=== PATIENT | male | born 1985 | race African-American/Black ===

== ENCOUNTER 2018-03-05 14:20 | Inpatient (IN) | payer OTHER ==
[2018-03-05 16:01] VITALS: BMI 25.4
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
[2018-03-05] MEDS ORDERED: guaiFENesin/D-METHORPHAN HB 10 ML UNIT-DOSE CUPS PO PRN (17:22)
[2018-03-05] MEDS ORDERED: MAGNESIUM HYDROX 2400MG/30ML ORAL SUSPENSION 30 ML CUP PO PRN (17:22)
[2018-03-05] MEDS ORDERED: IBUPROFEN 400 MG TABLET (FP) PO PRN (17:22)
[2018-03-05] MEDS ORDERED: MAG HYDROX/AL HYDROX/SIMETH 30 ML UNIT-DOSE CUP PO PRN (17:22)
[2018-03-05] MEDS ORDERED: P-EPHED 60MG/TRIPROLIDI 2.5MG TABLET PO PRN (17:22)
[2018-03-05] MEDS ORDERED: ACETAMINOPHEN 325 MG TABLET (FP) PO PRN (17:22)
[2018-03-05] MEDS ORDERED: MAGNESIUM CITRATE 300 ML BOTTLE PO PRN (17:22)
[2018-03-05] MEDS ORDERED: LOPERAMIDE HCL 2 MG CAPSULE PO PRN (17:22)
[2018-03-05] MEDS ORDERED: NICOTINE POLACRILEX 2 MG GUM BC PRN (17:22)
[2018-03-05] MEDS ORDERED: MENTHOL/PHENOL 1 EACH UD MM PRN (17:22)
[2018-03-05] MEDS ORDERED: TRIMETHOBENZAMIDE HCL 200MG/2ML INJ IM PRN (17:26)
[2018-03-05] MEDS: amLODIPine BESYLATE 10 MG TABLET (FP) PO SCH (20:13)
[2018-03-05] MEDS: diazePAM 5 MG TABLET PO PRN (20:13)
[2018-03-05] MEDS ORDERED: METHADONE HCL 10 MG TABLET (FOR DETOX USE ONLY) PO ONE ×2 (20:15→23:00)
[2018-03-05] MEDS: NICOTINE 21 MG/24 HOURS TOPICAL PATCH TD SCH (20:18)
[2018-03-05] MEDS: THIAMINE HCL 100 MG TABLET (FP) PO SCH (22:07)
[2018-03-05] MEDS: MELATONIN 5 MG TABLETS PO PRN (22:07)
[2018-03-05] MEDS: TOLNAFTATE 1% CREAM 15 GM TUBE TP SCH (22:08)
[2018-03-06] MEDS: diazePAM 5 MG TABLET PO PRN ×3 (04:02→22:08)
[2018-03-06] MEDS ORDERED: METHADONE HCL 10 MG TABLET (FOR DETOX USE ONLY) PO ONE (10:00)
[2018-03-06] MEDS: AMMONIUM LACTATE 12% LOTION 225 GM BOTTLE TP SCH (10:20)
[2018-03-06] MEDS: PRENATAL VITAMINS W/ FOLIC ACID TABLET (FP) PO SCH (10:24)
[2018-03-06] MEDS: NICOTINE 21 MG/24 HOURS TOPICAL PATCH TD SCH (10:24)
[2018-03-06] MEDS: amLODIPine BESYLATE 10 MG TABLET (FP) PO SCH (10:24)
[2018-03-06] MEDS: TOLNAFTATE 1% CREAM 15 GM TUBE TP SCH ×2 (10:25→22:10)
[2018-03-06 10:35] LABS: SICKLE CELL SCREEN NEGATIVE (NEGATIVE)
[2018-03-06 10:49] LABS: HEMATOCRIT 37.1 % (35.4-49); HEMOGLOBIN 12.5 GM/dL (11.7-16.9); MCH 29.7 pg (25.7-33.7); MCHC 33.8 g/dl (32.0-35.9); MEAN CELL VOLUME 87.7 fl (80-96); MEAN PLT VOLUME 8.2 fl (7.5-11.1); PLATELET COUNT 292 K/MM3 (134-434); RBC 4.22 M/mm3 (4.00-5.60); RDW 15.4 % (11.9-15.9); WHITE BLOOD COUNT 6.2 K/mm3 (4.0-10.0)
[2018-03-06 11:12] LABS: ALBUMIN 3.4 g/dl (3.4-5.0); ALK PHOS 74 U/L (45-117); ANION GAP 9 MMOL/L (8-16); BILIRUBIN,TOTAL 0.3 mg/dL (0.2-1); BLOOD UREA NITROGEN 10 mg/dL (7-18); CALCIUM 8.8 mg/dL (8.5-10.1); CHLORIDE 104 mmol/L (98-107); CO2 28 mmol/L (21-32); CREATININE 0.9 mg/dL (0.55-1.3); GLUCOSE,RANDOM 72 mg/dL (74-106); POTASSIUM 3.9 mmol/L (3.5-5.1); SGOT/AST 7 U/L (15-37); SGPT/ALT 14 U/L (13-61); SODIUM 142 mmol/L (136-145); TOT PROT 6.2 g/dl (6.4-8.2)
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
[2018-03-06] MEDS: SERTRALINE HCL 50 MG TABLET (FP) PO SCH (15:43)
--- NOTE | 2018-03-06 16:55 | PN ---
BHS COWS - Scale Resting Pulse: 0= [place] 80 or Below Sweatin= Chills/Flushing Restless Observation: 1= Difficult to Sit Still Pupil Size: 0= Normal to Room Light Bone or Joint Aches: 2= Severe Diffuse Aches Runny Nose/ Eye Tearin= Nasal Congestion GI Upset > 30mins: 0= None Tremor Observation of Outstretched Hands: 0= None Yawning Observation: 1= 1-2x During Session Anxiety or Irritability: 2=Irritable/Anxious Goose Flesh Skin: 3=Piloerection COWS Score: 11 BHS Progress Note (SOAP) Subjective: Anxious, Sweating, Interrupted Sleep, Constipation, Body Aches. Objective: PATIENT A & O X 3, OBSERVED AMBULATING ON UNIT. IN NO ACUTE DISTRESS. 03/06/18 16:56 Vital Signs Temperature 99.0 F 03/06/18 14:05 Pulse Rate 79 03/06/18 14:05 Respiratory Rate 18 03/06/18 14:05 Blood Pressure 124/86 03/06/18 14:05 O2 Sat by Pulse Oximetry (%) Laboratory Tests 03/06/18 03/06/18 03/06/18 07:00 07:00 07:00 WBC 6.2 RBC 4.22 Hgb 12.5 Hct 37.1 MCV 87.7 MCH 29.7 MCHC 33.8 RDW 15.4 Plt Count 292 MPV 8.2 Sickle Cell Screen Negative Sodium 142 Potassium 3.9 Chloride 104 Carbon Dioxide 28 Anion Gap 9 BUN 10 Creatinine 0.9 Creat Clearance w eGFR > 60 Random Glucose 72 L Calcium 8.8 Total Bilirubin 0.3 AST 7 L ALT 14 Alkaline Phosphatase 74 Total Protein 6.2 L Albumin 3.4 HIV 1&2 Antibody Screen Negative HIV P24 Antigen Negative LABS NOTED. HCV AB, RPR RESULTS PENDING. 03/06/18 16:58 Assessment: 03/06/18 16:57 WITHDRAWAL SYMPTOMS. Plan: CONTINUE DETOX. INCREASE DAILY PO FLUID INTAKE. PRN MOM FOR CONSTIPATION.
[2018-03-06] MEDS ORDERED: traZODone HCL 50 MG TABLET (FP) PO SCH (22:00)
[2018-03-06] MEDS ORDERED: risperiDONE 1 MG TABLET (FP) PO SCH (22:00)
[2018-03-06] MEDS ORDERED: HALOPERIDOL 5 MG TABLET (FP) PO SCH (22:00)
[2018-03-06] MEDS: THIAMINE HCL 100 MG TABLET (FP) PO SCH (22:08)
[2018-03-07] MEDS ORDERED: METHADONE HCL 5 MG TABLET (FOR DETOX USE ONLY) PO ONE (10:00)
[2018-03-07] MEDS: amLODIPine BESYLATE 10 MG TABLET (FP) PO SCH (10:31)
[2018-03-07] MEDS: PRENATAL VITAMINS W/ FOLIC ACID TABLET (FP) PO SCH (10:32)
[2018-03-07] MEDS: NICOTINE 21 MG/24 HOURS TOPICAL PATCH TD SCH (10:32)
[2018-03-07] MEDS: SERTRALINE HCL 50 MG TABLET (FP) PO SCH (10:33)
[2018-03-07] MEDS: TOLNAFTATE 1% CREAM 15 GM TUBE TP SCH ×2 (11:49→23:04)
[2018-03-07] MEDS: AMMONIUM LACTATE 12% LOTION 225 GM BOTTLE TP SCH (11:49)
[2018-03-07] MEDS: diazePAM 5 MG TABLET PO PRN ×2 (12:58→22:39)
--- NOTE | 2018-03-07 15:22 | PN ---
BHS COWS - Scale Resting Pulse: 1= [place] 81-100 Sweatin= Chills/Flushing Restless Observation: 1= Difficult to Sit Still Pupil Size: 0= Normal to Room Light Bone or Joint Aches: 0= None Runny Nose/ Eye Tearin= None GI Upset > 30mins: 0= None Tremor Observation of Outstretched Hands: 0= None Yawning Observation: 1= 1-2x During Session Anxiety or Irritability: 2=Irritable/Anxious Goose Flesh Skin: 3=Piloerection COWS Score: 9 BHS Progress Note (SOAP) Subjective: Constipation, Anxious, Sweating. Objective: PATIENT A & O X 3, OBSERVED AMBULATING ON UNIT. IN NO ACUTE DISTRESS. 03/07/18 15:20 Vital Signs Temperature 95.6 F L 03/07/18 13:38 Pulse Rate 94 H 03/07/18 13:38 Respiratory Rate 16 03/07/18 13:38 Blood Pressure 124/73 03/07/18 13:38 O2 Sat by Pulse Oximetry (%) Laboratory Tests 03/06/18 03/06/18 03/06/18 07:00 07:00 07:00 WBC 6.2 RBC 4.22 Hgb 12.5 Hct 37.1 MCV 87.7 MCH 29.7 MCHC 33.8 RDW 15.4 Plt Count 292 MPV 8.2 Sickle Cell Screen Negative Sodium 142 Potassium 3.9 Chloride 104 Carbon Dioxide 28 Anion Gap 9 BUN 10 Creatinine 0.9 Creat Clearance w eGFR > 60 Random Glucose 72 L Calcium 8.8 Total Bilirubin 0.3 AST 7 L ALT 14 Alkaline Phosphatase 74 Total Protein 6.2 L Albumin 3.4 RPR Titer Hep C Ab Diagnostic <0.1 HIV 1&2 Antibody Screen HIV P24 Antigen 03/06/18 03/06/18 07:00 07:00 WBC RBC Hgb Hct MCV MCH MCHC RDW Plt Count MPV Sickle Cell Screen Sodium Potassium Chloride Carbon Dioxide Anion Gap BUN Creatinine Creat Clearance w eGFR Random Glucose Calcium Total Bilirubin AST ALT Alkaline Phosphatase Total Protein Albumin RPR Titer Nonreactive Hep C Ab Diagnostic HIV 1&2 Antibody Screen Negative HIV P24 Antigen Negative LABS NOTED. Assessment: 03/07/18 15:21 WITHDRAWAL SYMPTOMS. Plan: CONTINUE DETOX. INCREASE DAILY PO FLUID INTAKE. PRN MOM FOR CONSTIPATION.
--- NOTE | 2018-03-07 16:38 | PN ---
Psychiatric Progress Note Vital Signs: Vital Signs Period Temp Pulse Resp BP Sys/Jones Pulse Ox Last 24 Hr 95.6 F-98.5 F 76-95 16-18 110-124/58-79 Date of Session: 03/07/18 Chief Complaint:: " These medications are too strong. Please stop them ". HPI: Called to re-evaluate this patient, admitted on 03/05/18 for detoxification (opioid, cannabis), in response to complaints of " not feeling well, feeling weird " since a number of psychotropics (risperdal + haldol + sertraline + trazodone ) were added to the regimen. Patient endorses complaints of slow mentation, daytime sleepiness, extreme fatigue, constant drowsiness and general discomfort. Mr Isaac is adamant that these symptoms were not present on admission to [facility]. ROS: Medical history is noted. Consistent with a history of Henry-Parkinson- White syndrome (surgery done in 2017) and hypertension. Patient is observed as ambulatory, slow, sluggish but fully aware of his surroundings, coherent and coherent in his discourse. Current Medications: Active Medications Generic Name Dose Route Start Last Admin Trade Name Freq PRN Reason Stop Dose Admin Acetaminophen 650 mg 03/05/18 17:22 Tylenol - PO Q4H PRN FEVER Al Hydroxide/Mg Hydroxide 30 ml 03/05/18 17:22 Mylanta Oral Suspension - PO Q6H PRN DYSPEPSIA Amlodipine Besylate 10 mg 03/05/18 20:00 03/07/18 10:31 Norvasc - PO 10 mg DAILY HILARIO Administration Diazepam 10 mg 03/05/18 17:22 03/07/18 12:58 Valium - PO 03/08/18 17:21 10 mg Q4H PRN Administration WITHDRAWAL(CONT SUBST) Eucalyptus/Menthol/Phenol/Sorbitol 1 each 03/05/18 17:22 Cepastat Lozenge - MM Q4H PRN SORE THROAT Guaifenesin 10 ml 03/05/18 17:22 Robitussin Dm - PO Q6H PRN COUGH Haloperidol 5 mg 03/06/18 22:00 03/06/18 22:08 Haldol - PO 5 mg HS HILARIO Administration Ibuprofen 400 mg 03/05/18 17:22 Motrin - PO Q6H PRN PAIN LEVEL 4-6 Lactic Acid 1 applic 03/06/18 10:00 03/07/18 11:49 Lac-Hydrin 12 TP 1 applic DAILY HILARIO Administration Loperamide HCl 4 mg 03/05/18 17:22 Imodium - PO Q6H PRN DIARRHEA Magnesium Citrate 300 ml 03/05/18 17:22 Citroma - PO Q48H PRN CONSTIPATION Magnesium Hydroxide 30 ml 03/05/18 17:22 Milk Of Magnesia - PO DAILY PRN CONSTIPATION Melatonin 5 mg 03/05/18 22:00 03/05/18 22:07 Melatonin PO 5 mg HS PRN Administration INSOMNIA Methadone HCl 5 mg 03/10/18 06:00 Dolophine - PO 03/10/18 06:01 ONCE@0600 ONE Methadone HCl 15 mg 03/08/18 10:00 Dolophine - PO 03/08/18 10:01 ONCE ONE Methadone HCl 10 mg 03/09/18 10:00 Dolophine - PO 03/09/18 10:01 ONCE ONE Nicotine 21 mg 03/05/18 20:15 03/07/18 10:32 Nicoderm Patch - TD 21 mg DAILY HILARIO Administration Nicotine Polacrilex 2 mg 03/05/18 17:22 Nicorette Gum - BC Q2H PRN NICOTINE REPLACEMENT RX Multivit/Folic Acid/Iron 1 tab 03/06/18 10:00 03/07/18 10:32 Vitamins (Sjr) - PO 1 tab DAILY HILARIO Administration Pseudoephedrine/Triprolidine 1 combo 03/05/18 17:22 Actifed - PO TID PRN NASAL CONGESTION Risperidone 1 mg 03/06/18 22:00 03/06/18 22:08 Risperdal - PO 1 mg HS HILARIO Administration Sertraline HCl 50 mg 03/06/18 14:35 03/07/18 10:33 Zoloft - PO 50 mg DAILY HILARIO Administration Thiamine HCl 100 mg 03/05/18 22:00 03/06/18 22:08 Vitamin B1 - PO 100 mg HS HILARIO Administration Tolnaftate 1 applic 03/05/18 22:00 03/07/18 11:49 Tinactin 1% Cream - TP 1 applic BID HILARIO Administration Trazodone HCl 50 mg 03/06/18 22:00 03/06/18 22:08 Desyrel - PO 50 mg HS HILARIO Administration Trimethobenzamide HCl 200 mg 03/05/18 17:26 Tigan Injection - IM Q8H PRN NAUSEA Medication(s) Change(s): Medications are revisited. Dr Ortiz's consult note (03/05/18) : read and appreciated. Patient is interviewed. Mr Gray aknowledges his diagnosis of schizophrenia but he reports that he has been off his medications for at least two weeks (has difficulty remembering their names and doses). Review of pharmacy claims shows risperdal on file. Patient's request : discontinuation of trazodone, zoloft, haldol, risperdal during this hospital course. Mr Gray states that he will discuss the issue with his psychiatrist after discharge from [facility]. Patient is made aware of potential for decompensation. He maintains his decision to, temporarily, abstain from these four compounds until discussion with his OPD psychiatrist. At the request of the patient, risperdal + trazodone + zoloft + haloperidol are discontinued. Current Side Effect: Yes (oversedation) Lab tests ordered: No Lab tests reviewed: Yes Provider note:: Chart reviewed. Discussed with the referring nurse. Psychiatric consult note by Dr Ortiz : read. Patient is examined at bedside. Total face to face time:: 45 Mental Status Exam - Mental Status Exam Alert and Oriented to: Time, Place, Person Cognitive Function: Grossly Intact Patient Appearance: Well Groomed (short stature, moderately overweight) Mood: Withdrawn, Anxious, Apprehensive Affect: Mood Congruent, Constricted Patient Behavior: Passive, Sedated (moderately sedated), Fatigued, Cooperative Speech Pattern: Delayed, Slurred Voice Loudness: Moderately Soft/Quiet Thought Process: Goal Oriented Hallucinations: Denies Suicidal Ideation: Denies Homicidal Ideation: Denies Insight/Judgement: Poor Sleep: Well (daytime sleepiness) Appetite: Good (observed eating diner) Muscle strength/Tone: Normal Gait/Station: Other (slow gait) Psychiatric Treatment Plan - Problem List (1) Sedated Current Visit: Yes Comment: Side effect of medications. (2) Opioid dependence with withdrawal Current Visit: Yes (3) Nicotine dependence Current Visit: Yes Qualifiers: Nicotine product type: cigarettes Substance use status: uncomplicated Qualified Code(s): F17.210 - Nicotine dependence, cigarettes, uncomplicated (4) History of schizophrenia Current Visit: Yes
[2018-03-07] MEDS: THIAMINE HCL 100 MG TABLET (FP) PO SCH (22:39)
[2018-03-08] MEDS ORDERED: METHADONE HCL 5 MG TABLET (FOR DETOX USE ONLY) PO ONE (10:00)
[2018-03-08] MEDS: amLODIPine BESYLATE 10 MG TABLET (FP) PO SCH (10:01)
[2018-03-08] MEDS: PRENATAL VITAMINS W/ FOLIC ACID TABLET (FP) PO SCH (10:01)
[2018-03-08] MEDS: NICOTINE 21 MG/24 HOURS TOPICAL PATCH TD SCH (10:01)
[2018-03-08] MEDS: AMMONIUM LACTATE 12% LOTION 225 GM BOTTLE TP SCH (10:01)
[2018-03-08] MEDS: TOLNAFTATE 1% CREAM 15 GM TUBE TP SCH ×2 (10:02→22:40)
[2018-03-08] MEDS: diazePAM 5 MG TABLET PO PRN (10:04)
--- NOTE | 2018-03-08 12:58 | PN ---
BHS Progress Note (SOAP) Subjective: body aches joints pain tremor poor appetite Objective: 03/08/18 12:56 Vital Signs Temperature 96.5 F L 03/08/18 09:20 Pulse Rate 91 H 03/08/18 09:20 Respiratory Rate 16 03/08/18 09:20 Blood Pressure 120/79 03/08/18 09:20 O2 Sat by Pulse Oximetry (%) Laboratory Last Values WBC 6.2 K/mm3 (4.0-10.0) 03/06/18 07:00 RBC 4.22 M/mm3 (4.00-5.60) 03/06/18 07:00 Hgb 12.5 GM/dL (11.7-16.9) 03/06/18 07:00 Hct 37.1 % (35.4-49) 03/06/18 07:00 MCV 87.7 fl (80-96) 03/06/18 07:00 MCH 29.7 pg (25.7-33.7) 03/06/18 07:00 MCHC 33.8 g/dl (32.0-35.9) 03/06/18 07:00 RDW 15.4 % (11.9-15.9) 03/06/18 07:00 Plt Count 292 K/MM3 (134-434) 03/06/18 07:00 MPV 8.2 fl (7.5-11.1) 03/06/18 07:00 Sickle Cell Screen Negative (NEGATIVE) 03/06/18 07:00 Sodium 142 mmol/L (136-145) 03/06/18 07:00 Potassium 3.9 mmol/L (3.5-5.1) 03/06/18 07:00 Chloride 104 mmol/L (98-107) 03/06/18 07:00 Carbon Dioxide 28 mmol/L (21-32) 03/06/18 07:00 Anion Gap 9 MMOL/L (8-16) 03/06/18 07:00 BUN 10 mg/dL (7-18) 03/06/18 07:00 Creatinine 0.9 mg/dL (0.55-1.3) 03/06/18 07:00 Creat Clearance w eGFR > 60 (>60) 03/06/18 07:00 Random Glucose 72 mg/dL (74-106) L 03/06/18 07:00 Calcium 8.8 mg/dL (8.5-10.1) 03/06/18 07:00 Total Bilirubin 0.3 mg/dL (0.2-1) 03/06/18 07:00 AST 7 U/L (15-37) L 03/06/18 07:00 ALT 14 U/L (13-61) 03/06/18 07:00 Alkaline Phosphatase 74 U/L (45-117) 03/06/18 07:00 Total Protein 6.2 g/dl (6.4-8.2) L 03/06/18 07:00 Albumin 3.4 g/dl (3.4-5.0) 03/06/18 07:00 RPR Titer Nonreactive (NONREACTIVE) 03/06/18 07:00 Hep C Ab Diagnostic <0.1 s/co ratio (0.0-0.9) 03/06/18 07:00 HIV 1&2 Antibody Screen Negative 03/06/18 07:00 HIV P24 Antigen Negative 03/06/18 07:00 lab noted Assessment: 03/08/18 12:57 withdrawal sx Plan: continue detox
[2018-03-08] MEDS: MELATONIN 5 MG TABLETS PO PRN (22:01)
[2018-03-08] MEDS: THIAMINE HCL 100 MG TABLET (FP) PO SCH (22:01)
[2018-03-09] MEDS ORDERED: METHADONE HCL 10 MG TABLET (FOR DETOX USE ONLY) PO ONE (10:00)
[2018-03-09] MEDS: PRENATAL VITAMINS W/ FOLIC ACID TABLET (FP) PO SCH (10:13)
[2018-03-09] MEDS: amLODIPine BESYLATE 10 MG TABLET (FP) PO SCH (10:13)
[2018-03-09] MEDS: AMMONIUM LACTATE 12% LOTION 225 GM BOTTLE TP SCH (10:14)
[2018-03-09] MEDS: NICOTINE 21 MG/24 HOURS TOPICAL PATCH TD SCH (10:14)
[2018-03-09] MEDS: TOLNAFTATE 1% CREAM 15 GM TUBE TP SCH ×2 (10:15→22:07)
--- NOTE | 2018-03-09 10:55 | PN ---
S Progress Note (SOAP) Subjective: feeling better requests to discuss psychotropic medication with psychiatrist psych referral less body aches little joints pain mild tremor Objective: 03/09/18 10:54 Vital Signs Temperature 98.6 F 03/09/18 09:35 Pulse Rate 83 03/09/18 09:35 Respiratory Rate 18 03/09/18 09:35 Blood Pressure 125/83 03/09/18 09:35 O2 Sat by Pulse Oximetry (%) Laboratory Last Values WBC 6.2 K/mm3 (4.0-10.0) 03/06/18 07:00 RBC 4.22 M/mm3 (4.00-5.60) 03/06/18 07:00 Hgb 12.5 GM/dL (11.7-16.9) 03/06/18 07:00 Hct 37.1 % (35.4-49) 03/06/18 07:00 MCV 87.7 fl (80-96) 03/06/18 07:00 MCH 29.7 pg (25.7-33.7) 03/06/18 07:00 MCHC 33.8 g/dl (32.0-35.9) 03/06/18 07:00 RDW 15.4 % (11.9-15.9) 03/06/18 07:00 Plt Count 292 K/MM3 (134-434) 03/06/18 07:00 MPV 8.2 fl (7.5-11.1) 03/06/18 07:00 Sickle Cell Screen Negative (NEGATIVE) 03/06/18 07:00 Sodium 142 mmol/L (136-145) 03/06/18 07:00 Potassium 3.9 mmol/L (3.5-5.1) 03/06/18 07:00 Chloride 104 mmol/L (98-107) 03/06/18 07:00 Carbon Dioxide 28 mmol/L (21-32) 03/06/18 07:00 Anion Gap 9 MMOL/L (8-16) 03/06/18 07:00 BUN 10 mg/dL (7-18) 03/06/18 07:00 Creatinine 0.9 mg/dL (0.55-1.3) 03/06/18 07:00 Creat Clearance w eGFR > 60 (>60) 03/06/18 07:00 Random Glucose 72 mg/dL (74-106) L 03/06/18 07:00 Calcium 8.8 mg/dL (8.5-10.1) 03/06/18 07:00 Total Bilirubin 0.3 mg/dL (0.2-1) 03/06/18 07:00 AST 7 U/L (15-37) L 03/06/18 07:00 ALT 14 U/L (13-61) 03/06/18 07:00 Alkaline Phosphatase 74 U/L (45-117) 03/06/18 07:00 Total Protein 6.2 g/dl (6.4-8.2) L 03/06/18 07:00 Albumin 3.4 g/dl (3.4-5.0) 03/06/18 07:00 RPR Titer Nonreactive (NONREACTIVE) 03/06/18 07:00 Hep C Ab Diagnostic <0.1 s/co ratio (0.0-0.9) 03/06/18 07:00 HIV 1&2 Antibody Screen Negative 03/06/18 07:00 HIV P24 Antigen Negative 03/06/18 07:00 lab noted Assessment: 03/09/18 10:54 mild withdrawal sx Plan: continue detox
[2018-03-09] MEDS: hydrOXYzine PAMOATE 50 MG CAPSULE (FP) PO PRN (11:39)
--- NOTE | 2018-03-09 13:43 | EKG ---
Test Reason : Blood Pressure : / mmHG Vent. Rate : 085 BPM Atrial Rate : 085 BPM P-R Int : 130 ms QRS Dur : 122 ms QT Int : 374 ms P-R-T Axes : 042 028 -02 degrees QTc Int : 445 ms NORMAL SINUS RHYTHM VENTRICULAR PRE-EXCITATION, WPW PATTERN TYPE B ABNORMAL ECG NO PREVIOUS ECGS AVAILABLE Confirmed by GUERITA HUMMEL MD ([id number]) on 03/09/2018 1:42:47 PM Referred By: Confirmed By:GUERITA HUMMEL MD
[2018-03-09] MEDS: THIAMINE HCL 100 MG TABLET (FP) PO SCH (22:06)
[2018-03-09] MEDS: MELATONIN 5 MG TABLETS PO PRN (22:06)
[2018-03-10] MEDS: hydrOXYzine PAMOATE 50 MG CAPSULE (FP) PO PRN (03:07)
[2018-03-10] MEDS ORDERED: METHADONE HCL 5 MG TABLET (FOR DETOX USE ONLY) PO ONE (06:00)
[2018-03-10 09:11] VITALS: BP 129/88; PULSE 121; TEMP 98.7
[2018-03-10] MEDS: PRENATAL VITAMINS W/ FOLIC ACID TABLET (FP) PO SCH (10:14)
[2018-03-10] MEDS: NICOTINE 21 MG/24 HOURS TOPICAL PATCH TD SCH (10:15)
[2018-03-10] MEDS: AMMONIUM LACTATE 12% LOTION 225 GM BOTTLE TP SCH (10:15)
[2018-03-10] MEDS: amLODIPine BESYLATE 10 MG TABLET (FP) PO SCH (10:16)
[2018-03-10] MEDS: TOLNAFTATE 1% CREAM 15 GM TUBE TP SCH (10:16)
--- NOTE | 2018-03-10 14:20 | DS ---
[facility] Detox Discharge Summary Admission Date: 03/05/18 Discharge Date: 03/10/18 - History Present History: Opioid Dependence Additional Comments: 33 years old male admitted on 03/05/18 for opiate withdrawal stabilization completed detox regimen tolerated well alert no acute distress aftercare [facility] - Physical Exam Results Vital Signs: Vital Signs Temperature 98.7 F 03/10/18 09:10 Pulse Rate 121 H 03/10/18 09:10 Respiratory Rate 18 03/10/18 09:10 Blood Pressure 129/88 03/10/18 09:10 O2 Sat by Pulse Oximetry (%) Pertinent Admission Physical Exam Findings: opiate withdrawal sx Vital Signs Temperature 98.7 F 03/10/18 09:10 Pulse Rate 121 H 03/10/18 09:10 Respiratory Rate 18 03/10/18 09:10 Blood Pressure 129/88 03/10/18 09:10 O2 Sat by Pulse Oximetry (%) Laboratory Last Values WBC 6.2 K/mm3 (4.0-10.0) 03/06/18 07:00 RBC 4.22 M/mm3 (4.00-5.60) 03/06/18 07:00 Hgb 12.5 GM/dL (11.7-16.9) 03/06/18 07:00 Hct 37.1 % (35.4-49) 03/06/18 07:00 MCV 87.7 fl (80-96) 03/06/18 07:00 MCH 29.7 pg (25.7-33.7) 03/06/18 07:00 MCHC 33.8 g/dl (32.0-35.9) 03/06/18 07:00 RDW 15.4 % (11.9-15.9) 03/06/18 07:00 Plt Count 292 K/MM3 (134-434) 03/06/18 07:00 MPV 8.2 fl (7.5-11.1) 03/06/18 07:00 Sickle Cell Screen Negative (NEGATIVE) 03/06/18 07:00 Sodium 142 mmol/L (136-145) 03/06/18 07:00 Potassium 3.9 mmol/L (3.5-5.1) 03/06/18 07:00 Chloride 104 mmol/L (98-107) 03/06/18 07:00 Carbon Dioxide 28 mmol/L (21-32) 03/06/18 07:00 Anion Gap 9 MMOL/L (8-16) 03/06/18 07:00 BUN 10 mg/dL (7-18) 03/06/18 07:00 Creatinine 0.9 mg/dL (0.55-1.3) 03/06/18 07:00 Creat Clearance w eGFR > 60 (>60) 03/06/18 07:00 Random Glucose 72 mg/dL (74-106) L 03/06/18 07:00 Calcium 8.8 mg/dL (8.5-10.1) 03/06/18 07:00 Total Bilirubin 0.3 mg/dL (0.2-1) 03/06/18 07:00 AST 7 U/L (15-37) L 03/06/18 07:00 ALT 14 U/L (13-61) 03/06/18 07:00 Alkaline Phosphatase 74 U/L (45-117) 03/06/18 07:00 Total Protein 6.2 g/dl (6.4-8.2) L 03/06/18 07:00 Albumin 3.4 g/dl (3.4-5.0) 03/06/18 07:00 RPR Titer Nonreactive (NONREACTIVE) 03/06/18 07:00 Hep C Ab Diagnostic <0.1 s/co ratio (0.0-0.9) 03/06/18 07:00 HIV 1&2 Antibody Screen Negative 03/06/18 07:00 HIV P24 Antigen Negative 03/06/18 07:00 lab noted - Treatment Hospital Course: Detox Protocol Followed, Detoxed Safely, Responded well, Discharged Condition Good, Rehab Referral Accepted Patient has Accepted a Rehab Referral to: [facility] - Medication Discharge Medications: Ambulatory Orders Amlodipine Besylate 10 mg PO DAILY #14 tablet 03/09/18 Naloxone HCl [Narcan] 4 mg NS ASDIR PRN #1 spray 03/10/18 - Diagnosis (1) Hypertension Status: Chronic Qualifiers: Hypertension type: unspecified Qualified Code(s): I10 - Essential (primary ) hypertension (2) Nicotine dependence Status: Acute Qualifiers: Nicotine product type: cigarettes Substance use status: in withdrawal Qualified Code(s): F17.213 - Nicotine dependence, cigarettes, with withdrawal (3) Opioid dependence with withdrawal Status: Acute - AMA Did Patient Leave Against Medical Advice: No
== END 2018-03-10 11:42 | disposition home or self-care (01) | DRG 773 ==
LOC: YASAS 14:20 → Y3N 19:40
PROVIDERS: ADMIT Neuromusculoskeletal Medicine & OMM; ATTEND Neuromusculoskeletal Medicine & OMM
PROC: HZ2ZZZZ Detoxification Services for Substance Abuse Treatment (ICD-10-PCS; principal; 2018-03-05)
DX: F11.23 Opioid dependence with withdrawal (principal); F17.213 Nicotine dependence, cigarettes, with withdrawal; F20.9 Schizophrenia, unspecified; I10 Essential (primary) hypertension; T50.995A Adverse effect of other drugs, medicaments and biological substances, initial encounter; Y92.239 Unspecified place in hospital as the place of occurrence of the external cause; Z86.79 Personal history of other diseases of the circulatory system
CPT/HCPCS: 36415; 80053; 85027; 85660; 86593; 86803; 87389; 93005; 93010; J2794